=== PATIENT | male | born 1970 | race Caucasian/White ===

== ENCOUNTER 2016-09-20 10:56 | Emergency (ER) | payer OTHER ==
[2016-09-20] MEDS ORDERED: DIPHTH,PERTUSS(ACELL),TET TOX 0.5 ML DISP.SYRIN. VAX IM ONE (11:15)
[2016-09-20 11:41] VITALS: BP 102/98
[2016-09-20] MEDS ORDERED: LIDOCAINE WITH 8.4% SOD BICARB 3 ML DISP.SYRIN. IJ ONE (11:50)
--- NOTE | 2016-09-20 12:13 | PHYS DOC ---
Past History Past Medical History: No Pertinent History Alcohol Use: Heavy Drug Use: None Adult General Chief Complaint Chief Complaint: LACERATION/AVULSION HPI HPI 45-year-old male presenting to the emergency department after sustaining a laceration injury to his right thumb. This occurred while he was working on a deck. He has pain that is sharp mild nonradiating and intermittent. He denies any other injuries. Review of systems is negative for chest pain shortness of breath fevers chills cough. Negative for wrist pain elbow pain or shoulder pain. All other review of systems is negative unless otherwise noted in history of present illness. ED course: 45-year-old presenting with a laceration to his right thumb which was repaired in the emergency department. It was washed out prior to this with sterile saline. The patient was then discharged home in stable condition to follow up with their primary care physician over the next 7 days for suture removal. They were to return if their symptoms worsened or if they were concerned for any reason. [id number] discharge instructions and return precautions were given. Patient's questions were answered to their satisfaction. Patient is comfortable plan. Review of Systems Review of Systems SEE ABOVE. Current Medications Current Medications Current Medications Medications (Trade) Dose Ordered Sig/Patrica Start Time Stop Time Status Last Admin Dose Admin Diphtheria/ Tetanus/Acell Pertussis (Boostrix) 0.5 ml ONCE ONCE 09/20/16 11:15 09/20/16 11:29 DC 09/20/16 11:23 0.5 ML Lidocaine/Sodium Bicarbonate (Buffered Lidocaine 1%) 3 ml 1X ONCE 09/20/16 11:50 09/20/16 11:51 DC Allergies Allergies Allergies Coded Allergies Type Severity Reaction Last Updated Verified No Known Drug Allergies 09/20/16 No Physical Exam Physical Exam Constitutional: Well developed, well nourished, no acute distress, non-toxic appearance. [] HENT: Normocephalic, atraumatic, bilateral external ears normal, oropharynx moist, no oral exudates, nose normal. [] Eyes: PERRLA, EOMI, conjunctiva normal, no discharge. [] Neck: Normal range of motion, no tenderness, supple, no stridor. [] Cardiovascular:Heart rate regular rhythm, no murmur [] Lungs & Thorax: Bilateral breath sounds clear to auscultation [] Abdomen: Bowel sounds normal, soft, no tenderness, no masses, no pulsatile masses. [] Skin: Warm, dry, no erythema, no rash. [] Back: No tenderness, no CVA tenderness. [] Extremities: 1 cm laceration to the right thumb. Neurovascularly intact prior to numbing medication. No other injuries identified. Nontender elbow and shoulder. No foreign bodies present on wound inspection under good lighting with good hemostasis Neurologic: Alert and oriented X 3, normal motor function, normal sensory function, no focal deficits noted. [] Psychologic: Affect normal, judgement normal, mood normal. [] Current Patient Data Vital Signs Vital Signs Date Time Temp Pulse Resp B/P (MAP) Pulse Ox O2 Delivery O2 Flow Rate FiO2 09/20/16 11:41 98.3 79 18 Room Air 98.0 EKG EKG [] Radiology/Procedures Radiology/Procedures [] Course & Med Decision Making Course & Med Decision Making Pertinent Labs and Imaging studies reviewed. (See chart for details) [] Dragon Disclaimer Dragon Disclaimer This chart was dictated in whole or in part using Voice Recognition software in a busy, high-work load, and often noisy Emergency Department environment. It may contain unintended and wholly unrecognized errors or omissions. Departure Departure: Impression: Primary Impression: Thumb laceration Disposition: 01 HOME, SELF-CARE Condition: STABLE Referrals: PCP,NANCY (PCP) VALENCIA JOHNSON MD Patient Instructions: Laceration Care, Adult Additional Instructions: Follow-up with your primary care doctor in 7 days for suture removal. Keep the wound clean. Do not submerge the wound within the first 24 hours. Thank you for allowing us to participate in your care today. If you do not have a primary care provider you can ask for a list of our primary care providers. Return to the emergency department you have any new or concerning findings. This should be evaluated by the primary care physician and any necessary consulting services for continued management within a few days after discharge. Return to emergency room if you have any new or concerning symptoms including but not limited to fever, chills, nausea, vomiting, intractable pain, any new rashes, chest pain, shortness of air, uncontrolled bleeding, difficulty breathing, and/or vision loss. Laceration Repair Lac Repair Indication: [] Right thumb laceration Procedure: A right thumb block was obtained with 1% buffered lidocaine. The area was cleansed with sterile saline and the wound edges were cleaned with Betadine. It was then closed with simple interrupted sutures. two 5-0 nonabsorbable sutures were placed. The wound was then dressed with a nonadherent dressing. Total wound length: 1 cm No complications. Pt tolerated well. AMPARO CARTAGENA MD September 20, 2016 12:13
== END 2016-09-20 12:20 | disposition home or self-care (01) ==
LOC: ER 10:56
DX: S61.011A Laceration without foreign body of right thumb without damage to nail, initial encounter (principal); F10.10 Alcohol abuse, uncomplicated; X58.XXXA Exposure to other specified factors, initial encounter; Y93.89 Activity, other specified; Y99.8 Other external cause status; Y92.89 Other specified places as the place of occurrence of the external cause
CPT/HCPCS: 12001; 90471; 90715; 99283-25

== ENCOUNTER 2020-11-27 13:12 | Emergency (ER) | payer OTHER ==
[~2020-11-27] VITALS: Ht 175.3 cm; Wt 75.0 kg
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
[2020-11-27] MEDS ORDERED: IOHEXOL 350 MG/ML 100 ML VIAL. IV ONE (14:00)
[2020-11-27] MEDS ORDERED: CONTRAST GIVEN. MC PRN (14:00)
[2020-11-27] MEDS ORDERED: IV NORMAL SALINE 500ML 500 ML IV ONE (14:00)
[2020-11-27 14:03] LABS: BASO % 0 % (0-3); EOS % 0 % (0-3); HEMATOCRIT 49.8 % (39.0-53.0); HEMOGLOBIN 17.1 g/dL (13.0-17.5); LYMPH # 0.4 x10^3/uL (1.0-4.8); LYMPH % 3 % (24-48); MEAN CORPUSCULAR HEMOGLOBIN 34 pg (25-35); MEAN CORPUSCULAR HGB CONC 34 g/dL (31-37); MEAN CORPUSCULAR VOLUME 97 fL (79-100); MONO # 0.4 x10^3/uL (0.0-1.1); MONO % 3 % (0-9); NEUT # 12.1 x10^3uL (1.8-7.7); NEUT % 94 % (31-73); PLATELET COUNT 166 x10^3/uL (140-400); RED BLOOD COUNT 5.11 x10^6/uL (4.30-5.70); RED CELL DISTRIBUTION WIDTH 12.9 % (11.5-14.5); WHITE BLOOD COUNT 12.9 x10^3/uL (4.0-11.0)
[2020-11-27 14:08] LABS: CALCIUM 9.2 mg/dL (8.5-10.1); CREATININE 1.3 mg/dL (0.7-1.3); POTASSIUM 5.3 mmol/L (3.5-5.1)
--- NOTE | 2020-11-27 14:14 | EKG ---
[address] [address] Test Date: 2020-11-27 Test Time: 13:25:55 Pat Name: GEOFFREY HUSSEIN Department: Room: Gender: M [employer]: ELMER : [id number] Requested By: KIT HURTADO Order Number: [id number] Reading MD: Measurements Intervals [place] Rate: 107 P: -13 DC: 158 QRS: 28 QRSD: 88 T: 59 QT: 316 QTc: 421 Interpretive Statements SINUS TACHYCARDIA OTHERWISE NORMAL ECG RI6.02 No previous ECG available for comparison
--- NOTE | 2020-11-27 14:20 | RAD ---
EXAM: CT angiography of the chest with intravenous contrast. HISTORY: Chest pain. Shortness of breath. TECHNIQUE: Computed tomographic images of the chest were obtained following the administration of int ravenous contrast according to angiography protocol. Multiplanar reformatting was performed and three dimensional maximum intensity projection images were obtained. *One or more of the following individualized dose reduction techniques were utilized for this examina tion: 1. Automated exposure control. 2. Adjustment of the mA and/or kV according to patient size. 3. Use of iterative reconstruction technique. COMPARISON: None. FINDINGS: There is no convincing evidence of pulmonary emphysema. The heart is upper normal in size. The aorta is normal in caliber. No pathologically enlarged lymph node is seen. There is no infiltrate or pleural effusion. There are few scattered calcified granulomas. There is bilateral lower lobe and posterior dependent atelectasis. There is hepatic steatosis. There is no acute or suspicious osseous lesion. IMPRESSION: 1. No evidence of pulmonary emphysema or alternative acute thoracic finding. 2. Hepatic steatosis. Electronically signed by: Diana Durán MD (11/27/2020 2:18 PM) [id number]
[2020-11-27 14:23] LABS: ALBUMIN 4.1 g/dL (3.4-5.0); ALBUMIN/GLOBULIN RATIO 1.1 (1.0-1.7); TOTAL BILIRUBIN 0.8 mg/dL (0.2-1.0); TOTAL PROTEIN 7.9 g/dL (6.4-8.2)
[2020-11-27 17:40] VITALS: BP 161/81
== END 2020-11-27 17:40 | disposition left against medical advice (07) ==
LOC: ER 13:12
DX: R07.89 Other chest pain (principal); Z20.822 Contact with and (suspected) exposure to COVID-19
CPT/HCPCS: 36415; 71275; 80053; 83880; 84484; 85025; 93005; 96360; 99285; C9803; J7040; Q9967; U0003

== ENCOUNTER 2021-05-01 15:02 | Emergency (ER) | payer OTHER ==
[~2021-05-01] VITALS: Ht 175.3 cm; Wt 75.0 kg
[2021-05-01 15:54] VITALS: BP 147/100
== END 2021-05-01 17:00 | disposition left against medical advice (07) ==
LOC: ER 15:02
DX: R19.7 Diarrhea, unspecified (principal); R11.0 Nausea; Z53.21 Procedure and treatment not carried out due to patient leaving prior to being seen by health care provider; Z20.822 Contact with and (suspected) exposure to COVID-19
CPT/HCPCS: C9803; U0003; 99283